=== PATIENT | male | born 1980 | race Caucasian/White ===

== ENCOUNTER → 2022-11-17 12:32 | Outpatient (BNVA) | payer OTHER, SELFPAY | PROVIDERS: Visit Provider Nurse Practitioner Family | DX: S60.229A Contusion of unspecified hand, initial encounter (principal); X58.XXXA Exposure to other specified factors, initial encounter; S62.603A Fracture of unspecified phalanx of left middle finger, initial encounter for closed fracture | CPT/HCPCS: 73120 ==